=== PATIENT | male | born 2000 | race Caucasian/White ===

== ENCOUNTER 2022-08-10 13:35 | Emergency (ER) | payer OTHER, SELFPAY ==
[2022-08-10 13:43] VITALS: BP 153/90; PULSE 80; RESP 16; TEMP 36.8; O2SAT 99
--- NOTE | 2022-08-10 14:47 | ED.URI ---
HPI - URI/Sore Throat General Chief Complaint: Upper Respiratory Infection Stated Complaint: cold flu Time Seen by Provider: 08/10/22 14:35 Source: patient, RN notes reviewed and old records reviewed Mode of arrival: ambulatory Limitations: no limitations History of Present Illness HPI Narrative: 22 year old male accompanied by family member presents to express care with complaints of body aches, sore throat has felt hot and cold for one week duration. Patient states that his neck and shoulder ache. Patient states that he has taken some NyQuil and DayQuil for his symptoms.Patient reports that he called off work today and needs work note. MD elicited complaint: sore throat and other (body aches) Onset (ago): week(s) (1) Pain scale (0-10): 3 Treatments prior to arrival: cold medicine Related Data Allergies Allergy/AdvReac Type Severity Reaction Status Date / Time No Known Allergies Allergy Unverified 04/08/18 14:15 Review of Systems Review of Systems: CONSTITUTIONAL: Reports malaise, chills, sweats, unknown if fever. EYES: Denies visual changes, redness, or discharge. ENT: Reports rhinorrhea, congestion, sinus pain,no otalgia positive for sore throat. CARDIOVASCULAR: Denies chest pain, palpitations, or edema. RESPIRATORY: Reports cough.? Denies dyspnea. GASTROINTESTINAL: Denies abdominal pain, nausea, vomiting, diarrhea SKIN: Denies rash or itching. MUSCULOSKELETAL: Reports myalgia. NEUROLOGIC: Denies headache. All systems reviewed & are unremarkable except as noted in HPI and below PMFSH Social History Social History (Updated 08/18/22 @ 12:26 by Keli Spencer NP) Smoking status: Current every day smoker Tobacco type: e-cigarettes/vaping Alcohol intake: unknown Substance use: current Substance use type: marijuana Last use: daily Gender identity (if verbalized by the patient): Male Comments At time of signature, agree with nursing past medical, surgical, social and family history. There is no relevant family history pertinent to the presenting complaint Exam Narrative: GENERAL: Well-appearing, well-nourished, and in no acute distress. HEAD: Normocephalic EYES: PERRLA, conjunctivae clear ENT: Nares clear, turbinates edematous and erythematous, clear discharge. Mucous membranes moist. TM pearly quiros with dull light reflex bilaterally; no tragal tenderness. Oropharynx erythematous without lesions. Tonsils not enlarged and without exudate, no drooling, no hoarseness, no trismus, uvula midline. NECK: Supple. No lymphadenopathy CHEST: Clear to auscultation, breath sounds equal. No wheezing, rhonchi, rales, or stridor. No respiratory distress, speaks in full sentences.SAO2 99% on room air HEART: Regular rate and rhythm. No murmur heard. SKIN: Warm, dry, no rash. NEURO: Alert and oriented x3. PSYCH: Normal mood and affect Course Course Emergency Course: Patient is aware of diagnosis, understands and agrees to treatment plan.? Anticipatory guidance given.? Patient agrees to follow-up as directed and is aware of reasons to seek care at the emergency department. Portions of this record may have been created with voice recognition software Level of Care: Express Care Visit Vital Signs Vital signs: Vital Signs Temperature 36.8 C 08/10/22 13:43 Pulse Rate 80 08/10/22 13:43 Respiratory Rate 16 08/10/22 13:43 Blood Pressure 153/90 H 08/10/22 13:43 Pulse Oximetry 99 08/10/22 13:43 Oxygen Delivery Room Air 08/10/22 13:43 Temperature 36.8 C 08/10/22 13:43 Pulse Rate 80 08/10/22 13:43 Respiratory Rate 16 08/10/22 13:43 Blood Pressure 153/90 H 08/10/22 13:43 Pulse Oximetry 99 08/10/22 13:43 Oxygen Delivery Room Air 08/10/22 13:43 Reviewed MDM - URI/Sore Throat MDM Narrative Medical decision making narrative: Differential diagnosis considered: Barnhart virus, strep pharyngitis, allergic rhinitis, upper respiratory tract infection,
--- NOTE | 2022-08-10 15:01 | ED.URI ---
HPI - URI/Sore Throat General Chief Complaint: Upper Respiratory Infection Stated Complaint: cold flu Time Seen by Provider: 08/10/22 14:35 Source: patient, RN notes reviewed and old records reviewed Mode of arrival: ambulatory Limitations: no limitations Related Data Allergies Allergy/AdvReac Type Severity Reaction Status Date / Time No Known Allergies Allergy Unverified 04/08/18 14:15 Course Vital Signs Vital signs: Vital Signs Temperature 36.8 C 08/10/22 13:43 Pulse Rate 80 08/10/22 13:43 Respiratory Rate 16 08/10/22 13:43 Blood Pressure 153/90 H 08/10/22 13:43 Pulse Oximetry 99 08/10/22 13:43 Oxygen Delivery Room Air 08/10/22 13:43 Temperature 36.8 C 08/10/22 13:43 Pulse Rate 80 08/10/22 13:43 Respiratory Rate 16 08/10/22 13:43 Blood Pressure 153/90 H 08/10/22 13:43 Pulse Oximetry 99 08/10/22 13:43 Oxygen Delivery Room Air 08/10/22 13:43 MDM - URI/Sore Throat Lab Data Labs: Influenza A Screen Negative Reference Range: Negative Influenza B Screen Negative Reference Range: Negative Strep Screen Presumptive Negative *(Reference Range: Negative)* Discharge Plan Discharge Clinical Impression: Upper respiratory infection, Pharyngitis Patient Disposition: Home, Self-Care Condition: Stable Instructions: Antibiotic Form Additional Instructions: Increase fluids especially juices and water [id number] cough and cold medicine of your choice for your symptoms DayQuil NyQuil daily Tylenol ibuprofen for any fever pain Delsym or Robitussin cough syrup heat to the face 20-30 minutes 4-6 times a day for pain Salt water gargles, throat lozenges or throat sprays as desired Your strep test today was negative. A throat culture will be sent to the laboratory for further testing. IF the test is positive, you will receive a phone call within 48 hours and an appropriate antibiotic will be initiated at that time. If your symptoms persist, change or worsen significantly before you can contact your personal physician then please, without delay, go to the emergency department for further evaluation. Follow-up with PCP in 7-10 days or sooner if needed Follow up with PCP soon in regards to your blood pressure which is elevated above threshold for referral. Blood pressure above 120/80 may indicate pre-hypertension. Blood pressure 153/90 Follow-up/Referrals: PHYSICIAN,SPECIAL ASSEMBLIES SUPERVISOR [Primary Care Provider] -
== END 2022-08-10 15:09 | disposition home or self-care (01) ==
PROVIDERS: Emergency Provider Registered Nurse
DX: J06.9 Acute upper respiratory infection, unspecified (principal); J02.9 Acute pharyngitis, unspecified; Z20.822 Contact with and (suspected) exposure to COVID-19; F17.290 Nicotine dependence, other tobacco product, uncomplicated; F12.90 Cannabis use, unspecified, uncomplicated
CPT/HCPCS: 87081; 87426; 87804; 87880; 99213; C9803; G0463

== ENCOUNTER 2022-11-19 15:09 | Emergency (ER) | payer OTHER, SELFPAY ==
[2022-11-19 15:19] VITALS: BP 152/78; PULSE 102; RESP 16; TEMP 37.2; O2SAT 100
--- NOTE | 2022-11-19 15:20 | ED.URI ---
HPI - URI/Sore Throat General Chief Complaint: Upper Respiratory Infection Stated Complaint: chest congestion Source: patient and RN notes reviewed History of Present Illness HPI Narrative: 22-year-old male presents to urgent care complaints chest congestion, chest tightness, cough, and shortness of breath. Patient states this all started with congestion in his face which has traveled to his chest. Patient states this going on for the last 4-5 days. Patient states he had a fever the 1st couple days but no longer. Denies any vomiting, diarrhea, ear pain, congestion, or sore throat. Patient has tried Mucinex with minimal relief. Some parts of this dictation were generated by voice recognition software and may contain typographical and/or grammatical inaccuracies. Related Data Allergies Allergy/AdvReac Type Severity Reaction Status Date / Time No Known Allergies Allergy Unverified 04/08/18 14:15 Review of Systems Review of Systems: Pertinent positives and pertinent negatives per HPI. [facility] Social History Social History (Updated 08/18/22 @ 12:26 by Keli Spencer NP) Smoking status: Current every day smoker Tobacco type: e-cigarettes/vaping Alcohol intake: unknown Substance use: current Substance use type: marijuana Last use: daily Gender identity (if verbalized by the patient): Male Comments At the time of my signature, I reviewed and agree with the nursing past medical, surgical, social, and family history. There is no relevant family history pertinent to the patient complaint. Exam Narrative: GENERAL: This is a well-nourished, well-developed patient, in no apparent distress. HEAD: normocephalic, atraumatic. EYES: Sclera clear/white. Vision is grossly intact. EARS: External ears normal, auditory canals clear and without drainage. Hearing grossly intact. NOSE: External nose normal with no obvious nasal discharge, nares without redness, no rhinorrhea. THROAT: Mucous membranes moist, posterior pharynx clear. NECK: Neck supple, non-tender without lymphadenopathy, masses or thyromegaly. CARDIOVASCULAR: Regular rate and rhythm without murmurs, gallops, or rubs. RESPIRATORY: Clear to auscultation. Breath sounds equal bilaterally but diminished. SKIN: warm, intact with no suspicious lesions or rash, good texture and turgor. NEURO: awake, alert, and oriented to person, place and time. There were no obvious focal neurologic abnormalities. Course Course Level of Care: Express Care Visit Vital Signs Vital signs: Vital Signs Temperature 99.0 F 11/19/22 15:19 Pulse Rate 102 H 11/19/22 15:19 Respiratory Rate 16 11/19/22 15:19 Blood Pressure 152/78 H 11/19/22 15:19 Pulse Oximetry 100 11/19/22 15:19 Oxygen Delivery Room Air 11/19/22 15:19 Temperature 99.0 F 11/19/22 15:19 Pulse Rate 102 H 11/19/22 15:19 Respiratory Rate 16 11/19/22 15:19 Blood Pressure 152/78 H 11/19/22 15:19 Pulse Oximetry 100 11/19/22 15:19 Oxygen Delivery Room Air 11/19/22 15:19 Reviewed MDM - URI/Sore Throat MDM Narrative Medical decision making narrative: Take steroids as directed. May use the inhaler every 4-6 hours as needed for coughing. Increase fluids at home. Avoid any and all smoke. May use a humidifier in the bedroom. Increase your Vitamin C. Follow-up with personal physician in 2-5 days. Differential Diagnosis Differential diagnosis: Likely upper respiratory infection, sinusitis and viral infection Critical Care Time Critical Care Time Critical Care Time: No Discharge Plan Discharge Clinical Impression: Bronchitis Patient Disposition: Home, Self-Care Condition: Stable Instructions: Antibiotic Form, Acute Bronchitis (ED) Additional Instructions: Take steroids as directed. May use the inhaler every 4-6 hours as needed for coughing. Increase fluids at home. Avoid any and all smoke. May use a humidifier in the bedroom. Increase your Vitamin C. Follow-up with pers
== END 2022-11-19 15:31 | disposition home or self-care (01) ==
PROVIDERS: Emergency Provider Nurse Practitioner Family
DX: J40 Bronchitis, not specified as acute or chronic (principal); F17.290 Nicotine dependence, other tobacco product, uncomplicated; F12.90 Cannabis use, unspecified, uncomplicated
CPT/HCPCS: 99213; G0463

== ENCOUNTER 2024-10-20 17:22 | Emergency (ER) | payer OTHER, SELFPAY ==
[2024-10-20 17:31] VITALS: BP 135/84; PULSE 80; RESP 20; TEMP 36.6; O2SAT 100
[2024-10-20 18:05] LABS: EDCOVIDSCREEN Negative (Negative)
[2024-10-20 18:06] LABS: EDINFLUASCREEN Negative (Negative); EDINFLUBSCREEN Negative (Negative); EDSTREPNEGPOS1 Negative (Negative)
--- NOTE | 2024-10-20 18:14 | ED.URI ---
HPI - URI/Sore Throat General Chief Complaint: Upper Respiratory Infection Stated Complaint: Tightness to Chest/Throat Problem/Cough Time Seen by Provider: 10/20/24 18:14 Source: patient Mode of arrival: ambulatory Limitations: no limitations History of Present Illness HPI Narrative: 24-year-old male presented for complaint of cough and chest congestion. Onset yesterday. Denies shortness of breath, wheezing nausea vomiting, fevers or lethargy. Taking DayQuil, NyQuil, ibuprofen and drinking fluids. Smokes marijuana and nicotine. Related Data Allergies Allergy/AdvReac Type Severity Reaction Status Date / Time No Known Allergies Allergy Unverified 10/20/24 17:40 Review of Systems Review of Systems: CONSTITUTIONAL: Denies body aches, fever, chills, or sweats. EYES: Denies visual changes, redness, or discharge. ENT: Denies rhinorrhea, congestion, sore throat, or otalgia. CARDIOVASCULAR: Denies chest pain, palpitations, or edema. RESPIRATORY: Reports cough, denies sob, wheezing. GASTROINTESTINAL: Denies abdominal pain, nausea, vomiting, or diarrhea. NEUROLOGIC: Denies headache All systems reviewed & are unremarkable except as noted in HPI and below PMFSH Social History Social History (Updated 08/18/22 @ 12:26 by Keli Spencer NP) Smoking status: Current every day smoker Tobacco type: e-cigarettes/vaping Alcohol intake: unknown Substance use: current Substance use type: marijuana Last use: daily Gender identity (if verbalized by the patient): Male Comments At time of signature, I have reviewed and agree with nursing past medical, surgical, social and family history unless otherwise noted. Please see nursing chart for further information. There is no relevant family history pertinent to the presenting complaint Exam Narrative: GENERAL: Well-appearing EYES: EOMI. No redness or drainage. Conjunctivae normal. ENT: Mucous membranes pink and moist. No rhinorrhea. TMs normal bilaterally. Throat normal. Uvula midline. NECK: Normal AROM. Supple. CHEST: No respiratory distress. lungs clear to all rodriguez. HEART: Regular rate and rhythm. No murmur appreciated. ABDOMEN: Soft, nontender, nondistended, normal active bowel sounds. SKIN: Warm, dry, Capillary refill normal. Normal skin turgor. NEURO: Alert and oriented x3. Course Course Emergency Course: Patient is aware of diagnosis, understands and agrees to treatment plan. Anticipatory guidance given. Patient agrees to follow-up as directed and is aware of reasons to seek care at the emergency department. Portions of this record may have been created with voice recognition software Level of Care: Express Care Visit Vital Signs Vital signs: Vital Signs Temperature 97.8 F 10/20/24 17:31 Pulse Rate 80 10/20/24 17:31 Respiratory Rate 20 10/20/24 17:31 Blood Pressure 135/84 10/20/24 17:31 Pulse Oximetry 100 10/20/24 17:31 Oxygen Delivery Room Air 10/20/24 17:31 Temperature 97.8 F 10/20/24 17:31 Pulse Rate 80 10/20/24 17:31 Respiratory Rate 20 10/20/24 17:31 Blood Pressure 135/84 10/20/24 17:31 Pulse Oximetry 100 10/20/24 17:31 Oxygen Delivery Room Air 10/20/24 17:31 MDM - URI/Sore Throat MDM Narrative Medical decision making narrative: negative flu, COVID, strep. Test reviewed with patient. Discussed physical exam findings. Advised supportive measures and signs/symptoms to go to the ER. Pt is appropriate for outpt treatment and f/u. Differential Diagnosis Differential diagnosis: Likely upper respiratory infection, sinusitis, viral infection, bronchitis, influenza and pharyngitis Lab Data Labs: Lab Results 10/20/24 Range/Units 18:02 POC Influenza A Ag Negative (Negative) POC Influenza B Ag Negative (Negative) POC SARS CoV-2 Ag Negative (Negative) POC Grp A Strep Screen Negative (Negative) Discharge Plan Discharge Clinical Impression: Viral infection Patient Disposition: Home, Self-Care Condition: Stable Instructions: Antibiotic Form, Acute Cough (ED) Additional Instructions: flu and COVID negative. Rapid strep swab was negative today You will be notified in a few days if the culture comes back positive for strep, and appropriate antibiotics will be called in at that time. if symptoms are due to a viral illness, it is not treated with antibiotics. Viral symptoms can be present for up to 10-14 days. Recommend: Flonase spray and Zyrtec for sinus congestion Cough syrup may cause drowsiness; avoid driving or take it at night time. Tylenol every 8 hours as needed for pain/fever Soft foods, cool liquids, warm tea. Gargle with warm saltwater twice a day. Chloraseptic spray and throat lozenges. Rest and stay hydrated. --Follow up with your PCP --Go to the ER immediately if you cannot swallow your saliva, trouble breathing/wheezing, throat swelling, pain is persistent and severe Patient Language: Sri Lankan Prescriptions: No Action azithromycin [Zithromax Z-Tomas] 250 mg tablet 250 mg PO DAILY 5 Days Qty: 5 0RF Rx Instructions: Take 500 mg on Day 1, 250 mg on Days 2-5. prednisone 20 mg tablet 40 mg PO DAILY 5 Days Qty: 10 0RF albuterol sulfate 90 mcg/actuation HFA aerosol inhaler 2 puff inhalation QID PRN (Reason: shortness of breath or wheezing) Qty: 8.5 0RF Follow-up/Referrals: PHYSICIAN,COC[employer] BEAN CLEANER [Primary Care Provider] - Stand Alone Forms: Work/School Release IP Time of Disposition: 18:18
== END 2024-10-20 18:20 | disposition home or self-care (01) ==
PROVIDERS: Emergency Provider Nurse Practitioner Family
DX: B34.9 Viral infection, unspecified (principal); Z20.822 Contact with and (suspected) exposure to COVID-19; F17.290 Nicotine dependence, other tobacco product, uncomplicated; F12.90 Cannabis use, unspecified, uncomplicated
CPT/HCPCS: 87081; 87426; 87804; 87880; 99213; G0463

== ENCOUNTER 2025-04-24 15:21 | Emergency (ER) | payer OTHER, SELFPAY ==
[2025-04-24 15:27] VITALS: BP 138/92; PULSE 81; RESP 16; TEMP 36.6; O2SAT 99
--- NOTE | 2025-04-24 15:57 | ED.URI ---
HPI - URI/Sore Throat General Chief Complaint: Upper Respiratory Infection Stated Complaint: flu, needs a work note Time Seen by Provider: 04/24/25 15:50 Source: patient and RN notes reviewed Mode of arrival: ambulatory Limitations: no limitations History of Present Illness HPI Narrative: Patient presents today complaining of a 2 day history of nasal congestion, rhinorrhea, sore throat, cough, bilateral ear fullness. Denies fever or shortness of breath. Reports multiple sick contacts at work. He has tried [id number] medication with some mild relief. Requesting work note. Related Data Home Medications ?Medication ?Instructions ?Recorded ?Confirmed ?Last Taken ?Type No Home Medications 04/24/25 04/24/25 Unknown History Allergies Allergy/AdvReac Type Severity Reaction Status Date / Time No Known Allergies Allergy Verified 04/24/25 15:33 [facility] Social History Social History Smoking status: Current every day smoker Tobacco type: e-cigarettes/vaping Alcohol intake: unknown Substance use: current Substance use type: marijuana Last use: daily Gender identity (if verbalized by the patient): Male Comments At time of signature, I have reviewed and agree with nursing past medical, surgical, social and family history unless otherwise noted. Please see nursing chart for further information. There is no relevant family history pertinent to the presenting complaint Exam Narrative: GENERAL: Mildly ill-appearing, well-nourished, and in no acute distress. HEAD: Normocephalic, atraumatic. EYES: EOMI. No redness or drainage. Conjunctivae normal. ENT: Mucous membranes pink and moist. Nares congested with rhinorrhea. TMs normal bilaterally. Throat normal. Uvula midline. NECK: Normal AROM. Supple. No lymphadenopathy. CHEST: No respiratory distress. Clear to auscultation. HEART: Regular rate and rhythm. No murmur appreciated. EXTREMITIES: Normal range of motion. No edema. SKIN: Warm, dry, no rash. Capillary refill normal. Normal skin turgor. NEURO: No focal deficits. Alert and oriented x3. Gait steady. PSYCH: Normal affect. No signs of depression or anxiety. Course Course Level of Care: Express Care Visit Vital Signs Vital signs: Vital Signs Temperature 97.9 F 04/24/25 15:27 Pulse Rate 81 04/24/25 15:27 Respiratory Rate 16 04/24/25 15:27 Blood Pressure 138/92 H 04/24/25 15:27 Pulse Oximetry 99 04/24/25 15:27 Oxygen Delivery Room Air 04/24/25 15:27 Temperature 97.9 F 04/24/25 15:27 Pulse Rate 81 04/24/25 15:27 Respiratory Rate 16 04/24/25 15:27 Blood Pressure 138/92 H 04/24/25 15:27 Pulse Oximetry 99 04/24/25 15:27 Oxygen Delivery Room Air 04/24/25 15:27 Reviewed MDM - URI/Sore Throat MDM Narrative Medical decision making narrative: 24-year-old male patient presents today with a 2 day history of congestion, rhinorrhea, sore throat, cough, ear pain. OTC treatment without improvement. Upon exam, patient is mildly ill appearing with some nasal congestion and rhinorrhea. COVID, influenza, and rapid strep negative. Strep culture pending. Symptoms likely viral in etiology. Discussed [id number] medication use and duration of illness. No prescription medications indicated at this time. Vital signs stable. Anticipatory guidance given. Differential Diagnosis Differential diagnosis: Likely upper respiratory infection, otitis media, viral infection, influenza, pharyngitis and other (COVID, strep) Lab Data Attestation: I reviewed the patient's lab results. Lab results narrative: Influenza negative, COVID negative, rapid strep negative Labs: Lab Results 04/24/25 Range/Units 15:55 POC Influenza A Ag Pending POC Influenza B Ag Pending POC SARS CoV-2 Ag Pending POC Grp A Strep Screen Pending Critical Care Time Critical Care Time Critical Care Time: No Discharge Plan Discharge Clinical Impression: Upper respiratory infection Qualifiers: URI type: unspecified URI Qualified Code(s): J06.9 - Acute upper respiratory infection, unspecified Patient Disposition: Home Condition: Stable Instructions: Upper Respiratory Infection (DC) Additional Instructions: Your influenza, COVID, and rapid strep swab was negative today at [facility]. You will be notified in a few days if the culture comes back positive for strep, and appropriate antibiotics will be called in for you at that time. Your symptoms are likely due to a viral illness, which is not treated with antibiotics. Viral symptoms can be present for up to 7-10 days. Take Tylenol or ibuprofen for fever or pain. Rest and stay hydrated. Follow up with your PCP in 7 days if symptoms are not improving. Go to the ER immediately if you have any difficulty breathing or swallowing. Your blood pressure was elevated above 120/80 today at Urgent Care. This puts you above the threshold for follow up. Please schedule a followup visit with your personal physician as soon as possible, for further evaluation and treatment. Even blood pressure exceeding 120/80 may indicate pre-hypertension. Patient Language: Vietnamese Prescriptions: No Action No Home Medications Follow-up/Referrals: PHYSICIAN,FIRE DISPATCHER [Primary Care Provider, Internal Medicine] Stand Alone Forms: Work/School Release IP Time of Disposition: 15:58
[2025-04-24 15:58] LABS: EDCOVIDSCREEN Negative (Negative); EDINFLUASCREEN Negative (Negative); EDINFLUBSCREEN Negative (Negative); EDSTREPNEGPOS1 Negative (Negative)
== END 2025-04-24 16:04 | disposition home or self-care (01) ==
PROVIDERS: Emergency Provider Nurse Practitioner
DX: J02.0 Streptococcal pharyngitis (principal); Z20.822 Contact with and (suspected) exposure to COVID-19; F17.290 Nicotine dependence, other tobacco product, uncomplicated
CPT/HCPCS: 87081; 87426; 87804; 87880; 99213; G0463

== ENCOUNTER 2025-06-20 15:34 | Emergency (ER) | payer OTHER, SELFPAY ==
[2025-06-20 15:37] VITALS: BP 154/93; PULSE 80; RESP 20; TEMP 36.6; O2SAT 100
--- NOTE | 2025-06-20 15:44 | ED.URI ---
HPI - URI/Sore Throat General Chief Complaint: Upper Respiratory Infection Stated Complaint: upper respiratory History of Present Illness HPI Narrative: Patient is a 25-year-old male, presents to [facility] with 18 hour history body aches, nasal congestion, chills and malaise without associated sore throat or cough. He has no known sick contacts. He has not taken any medication for symptom relief. Upon chart review, patient was evaluated here 04/24/2025 and diagnosed with an upper respiratory infection. A strep culture was ordered and returned positive for group a strep. Multiple attempts to contact the patient to notify of these abnormal results and to call in a prescription were unsuccessful. Antibiotics were sent to the pharmacy the patient was not aware they were there and never took the medications as prescribed. He has no sore throat symptoms at present, he denies CP, SOB, abdominal pain, NVDC, or dysuria. Related Data Allergies Allergy/AdvReac Type Severity Reaction Status Date / Time No Known Allergies Allergy Verified 04/24/25 15:33 Review of Systems ENT: Reports as per HPI Respiratory: Respiratory: Reports as per [facility] Social History Social History (Reviewed 06/20/25 @ 15:44 by Samreen Ramos, PRISON GUARD SUPERVISOR, COMMUNICATIONS COORDINATOR) Tobacco type: e-cigarettes/vaping Alcohol intake: unknown Substance use: current Substance use type: marijuana Last use: daily Gender identity (if verbalized by the patient): Male Exam Const: General: healthy appearing Nutritional Appearance: well nourished Orientation/consciousness: patient oriented x3 Other: Disheveled appearance HENMT: Head: normal to inspection Ears: external ears normal, EAC's normal and TM abnormal ( bilateral serous effusion) Face/Nose/Sinus: Normal external nose present and Normal nares present Face and sinus: normal facial exam and sinuses nontender Mouth: Yes Normal oral and palatal mucosa present, Yes lip normal and Yes moist mucous membranes Eyes: Conjunctivae: conjunctivae normal Pupils: Equal, round and reactive pupils present EOM: EOMs intact bilaterally Direct Ophthalmoscopy: no photophobia Neck: Neck: normal visual inspection, no lymphadenopathy and no meningeal signs Resp: Effort & Inspection: normal respiratory effort Auscultation: clear to auscultation bilaterally Cardio: Rate: regular rate Skin: General skin exam: normal color Rashes: no rashes Wounds: no wounds Neuro: General: patient oriented x3, moves all extremities, no meningeal signs, no focal motor deficits and CN's II-XI intact bilaterally Cranial nerves: Yes Nystagmus not present Speech: normal speech Gait exam (Neuro): Normal gait present Extrem: General: normal to inspection Psych: Mental Status: mental status grossly normal Affect: normal affect Attitude: cooperative Course Course Emergency Course: rapid strep is negative, suspect he may have cleared the bottle infection verses a lab error, plan to treat with a short steroid course for the serous effusion, encouraging Tylenol ibuprofen as directed [id number], Delsym for cough, pushing fluids and rest. A throat culture will reflex, we will contact him if the culture returns abnormally requires antibiotic therapy. We have confirmed his cellular phone number is active. Patient is encouraged to follow up with PCP if his symptoms not improving in 2-3 days. He is requesting a note for work today Level of Care: [facility] Care Visit ([id number]) Vital Signs Vital signs: Vital Signs Temperature 36.6 C 06/20/25 15:37 Pulse Rate 80 06/20/25 15:37 Respiratory Rate 20 06/20/25 15:37 Blood Pressure 154/93 H 06/20/25 15:37 Pulse Oximetry 100 06/20/25 15:37 Oxygen Delivery Room Air 06/20/25 15:37 Temperature 36.6 C 06/20/25 15:37 Pulse Rate 80 06/20/25 15:37 Respiratory Rate 20 06/20/25 15:37 Blood Pressure 154/93 H 06/20/25 15:37 Pulse Oximetry 100 06/20/25 15:37 Oxygen Delivery Room Air 06/20/25 15:37 MDM - URI/Sore Throat Differential Diagnosis Differential diagnosis: Likely upper respiratory infection, otitis media, sinusitis, viral infection, pharyngitis and other ( eustachian tube dysfunction /serous otitis media) Lab Data Labs: Lab Results 06/20/25 Range/Units 15:50 POC Grp A Strep Screen Negative (Negative) Discharge Plan Discharge Clinical Impression: Upper respiratory infection Qualifiers: URI type: acute nasopharyngitis (common cold) Qualified Code(s): J00 - Acute nasopharyngitis [common cold] Acute serous otitis media Qualifiers: Laterality: bilateral Recurrence: non-recurrent Qualified Code(s): H65.03 - Acute serous otitis media, bilateral Patient Disposition: Home Condition: Stable Instructions: Antibiotic Form, Upper Respiratory Infection (ED), Fluid In The Ear (Serous Otitis Media) (ED) Additional Instructions: PUSH FLUIDS, COMPLETE STEROIDS DIRECTED, ADD [id number] COLD MEDICATION AND OR TYLENOL/IBUPROFEN DIRECTED FOR DISCOMFORT. REST, FOLLOW-UP WITH YOUR PRIMARY DOCTOR IN 3-5 DAYS IF SYMPTOMS ARE NOT RESOLVING. Patient Language: Croatian Prescriptions: New prednisone 20 mg tablet 40 mg PO DAILY 5 Days Qty: 10 0RF No Action amoxicillin 500 mg tablet 500 mg PO Q12H Qty: 20 0RF Follow-up/Referrals: Chloé Holloway MD [Physician, Family Practice] PHYSICIAN,[employer] MACHINE HELPER [Primary Care Provider, Internal Medicine] Stand Alone Forms: Work/School Release IP Time of Disposition: 16:07
[2025-06-20 16:00] LABS: EDSTREPNEGPOS1 Negative (Negative)
== END 2025-06-20 16:10 | disposition home or self-care (01) ==
PROVIDERS: Emergency Provider Nurse Practitioner Family
DX: J00 Acute nasopharyngitis [common cold] (principal); H65.03 Acute serous otitis media, bilateral; F12.90 Cannabis use, unspecified, uncomplicated; Z87.891 Personal history of nicotine dependence
CPT/HCPCS: 87081; 87880; 99213; G0463